=== PATIENT | male | born 1995 | race Caucasian/White ===

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

== ENCOUNTER 2017-09-30 13:01 | Emergency (ER) | payer OTHER ==
--- NOTE | 2017-09-30 15:42 | EDPHY ---
H & P Stated Complaint: n/v/d since this morning Time Seen by Provider: 09/30/17 15:40 - Personal History Current Tetanus Diphtheria and Acellular Pertussis (TDAP): Yes - Medical/Surgical History Hx Asthma: No Hx Chronic Respiratory Disease: No Hx Diabetes: No Hx Cardiac Disease: No Hx Renal Disease: No Hx Cirrhosis: No Hx Alcoholism: No Hx HIV/AIDS: No Hx Splenectomy or Spleen Trauma: No Other PMH: healthy - Social History Smoking Status: Never smoked Constitutional: Initial Vital Signs Temperature (C) 36.6 C 09/30/17 13:07 Heart Rate 100 09/30/17 13:07 Respiratory Rate 16 09/30/17 13:07 Blood Pressure 114/71 09/30/17 13:07 O2 Sat (%) 98 09/30/17 13:07 O2 Delivery Mode Room Air Allergies/Adverse Reactions: No Known Allergies Allergy (Verified 09/30/17 13:07) Home Medications: Medication Instructions Recorded NK [No Known Home Meds] 09/30/17 Medical Decision Making ED Course/Re-evaluation: CHIEF COMPLAINT: Nausea and vomiting HISTORY OF PRESENT ILLNESS: The patient is a 22 y/o male complaining of nausea, vomiting, and diarrhea onset last night. He had a couple of beers and shots last night, this is not a significant amount of alcohol for the patient. After drinking, he began to vomit multiple times. This vomiting occurred whenever he drank or ate food and lasted till 05:00, 1 hour ago. Denies chest pain, shortness of breath, abdominal pain, urinary complaints, numbness, paresthesias, fever. REVIEW OF SYSTEMS: A 10 point review of systems was performed and is negative with the exception of the elements mentioned in the history of present illness. PHYSICAL EXAM: HR, BP, O2 Sat, RR. Temp noted General Appearance: Alert, well hydrated, appropriate, and non-toxic appearing. Head: Atraumatic without scalp tenderness or obvious injury Eyes: Pupils equal, round, reactive to light and accommodation, EOMI, no trauma , no injection. Ears: Clear bilaterally, no perforation, normal landmarks Nose: Atraumatic, no rhinorrhea, clear. Throat: There is no erythema or exudates, no lesions, normal tonsils, mucus membranes moist. Neck: Supple, 2+ carotid upstroke, nontender, no lymphadenopathy. Respiratory: No retractions, no distress, no wheezes, and no accessory muscle use. Lungs are clear to auscultation bilaterally. Cardiovascular: Regular rate and rhythm, no murmurs, rubs, or gallops. Bilateral carotid, radial, dorsalis pedis, and posterior tibial pulses intact. Good capillary refill all extremities. Gastrointestinal: Abdomen is soft, nontender, non-distended, no masses, no rebound, no guarding, no peritoneal signs. Musculoskeletal: Normal active ROM of all extremities, atraumatic. Neurological: Alert, appropriate, and interactive. The patient has normal DTRs and non-focal cranial nerves, motor, sensory, and cerebellar exam. Skin: No rashes, good turgor, no nodules on palpation. Past medical history: Denies Past surgical history: Denies Family history: Denies Social history: Student at , single, lives in [place] DIFFERENTIAL DIAGNOSIS: The differential diagnosis for the patient's nausea and vomiting included but was not limited to dehydration, gastroenteritis, gastritis, appendicitis, and medication side effect. MEDICAL DECISION MAKING: The patient is a 22 y/o male presenting with nausea, vomiting, and diarrhea, onset last night. He has a benign physical exam. Chem8 and I-Stat ordered; 0.5mg IV Ativan, 2L IV NS, and 4mg IV Zofran administered. Imaging studies are not indicated at this time. 1721: Patients labs are unremarkable. His symptoms are consistent with nausea, vomiting, dehydration, and gastritis. 1725: Reassessed patient and discussed laboratory findings. He is feeling improved after fluids and medication. I have prescribed him Zofran. Return precautions provided; patient is comfortable with this plan. - Data Points Medications Given: Discontinued Medications Sodium Chloride (Ns) 1,000 mls @ 0 mls/hr IV EDNOW ONE; Wide Open PRN Reason: Protocol Stop: 09/30/17 15:53 Last Admin: 09/30/17 16:25 Dose: 1,000 mls Sodium Chloride (Ns) 1,000 mls @ 0 mls/hr IV EDNOW ONE; Wide Open PRN Reason: Protocol Stop: 09/30/17 15:53 Last Admin: 09/30/17 16:11 Dose: 1,000 mls Lorazepam (Ativan Injection) 0.5 mg IVP EDNOW ONE Stop: 09/30/17 15:54 Last Admin: 09/30/17 17:05 Dose: Not Given Ondansetron HCl (Zofran) 4 mg IVP EDNOW ONE Stop: 09/30/17 15:53 Last Admin: 09/30/17 16:11 Dose: 4 mg Departure - Departure Disposition: Home, Routine, Self-Care Clinical Impression: Dehydration Nausea & vomiting Qualifiers: Vomiting type: unspecified Vomiting Intractability: intractable Qualified Code( s): R11.2 - Nausea with vomiting, unspecified Gastritis Qualifiers: Gastritis type: unspecified gastritis Chronicity: acute Gastritis bleeding: without bleeding Qualified Code(s): K29.00 - Acute gastritis without bleeding Condition: Good Instructions: Gastritis (ED), Dehydration (ED), Acute Nausea and Vomiting (ED) Additional Instructions: 1. Increase fluid intake. 2. Take 4mg oral Zofran as needed for nausea. 3. Follow-up with your primary doctor within 72 hours. 4. Return to the Emergency Department for fever, chest pain, shortness of breath , increasing pain, or other worsening of condition. Referrals: [facility] [Clinic] - As per Instructions Report Scribed for: Flash Baptiste Report Scribed by: Calista Rubalcava Date of Report: 09/30/17 Time of Report: 15:50
[2017-09-30] MEDS ORDERED: NS 1,000 ML IV ONE ×2 (15:52)
[2017-09-30] MEDS ORDERED: ONDANSETRON 4 MG/2 ML VIAL IVP ONE (15:52)
[2017-09-30] MEDS ORDERED: LORazepam 2 MG/ML INJ IVP ONE (15:53)
[2017-09-30 17:44] VITALS: BP 122/63
== END 2017-09-30 17:40 | disposition home or self-care (01) ==
DX: K29.70 Gastritis, unspecified, without bleeding (principal); E86.0 Dehydration
CPT/HCPCS: 96374; J2405